=== PATIENT | male | born 1945 | race Caucasian/White ===

== ENCOUNTER 2023-11-07 19:49 | Inpatient (IN) | payer OTHER ==
[2023-11-07 20:19] VITALS: BMI 29.7
[2023-11-07] MEDS ORDERED: MECLIZINE HCL 25 MG TABLET (FP) PO ONE (22:17)
[2023-11-07] MEDS ORDERED: MECLIZINE HCL 25 MG TABLET (FP) ONE (22:27)
[2023-11-07 23:03] LABS: INR 1.07 (0.83-1.09); PROTHROMBIN TIME (PATIENT) 12.4 SEC (9.7-13.0)
[2023-11-07 23:05] LABS: ACTIVATED PTT 30.2 SECONDS (25.2-36.5)
[2023-11-07 23:13] LABS: POTASSIUM 4.3 mmol/L (3.5-5.1)
[2023-11-07 23:14] LABS: BASO % 0.4 % (0-2.0); EOS % 0.9 % (0-4.5); HEMATOCRIT 50.5 % (35.4-49); HEMOGLOBIN 17.1 GM/dL (11.7-16.9); LYMPH % 22.1 % (8-40); MCH 29.5 pg (25.7-33.7); MCHC 33.9 g/dl (32.0-35.9); MONO % 4.7 % (3.8-10.2); NEUT % 71.9 % (42.8-82.8); PLATELET COUNT 203 10^3/uL (134-434); RBC 5.81 M/mm3 (4.00-5.60); RDW 14.3 % (11.9-15.9); WHITE BLOOD COUNT 8.8 K/mm3 (4.0-10.0)
[2023-11-07 23:15] LABS: CALCIUM 9.8 mg/dL (8.5-10.1); PH,URINE 6.5 (5.0-8.0); URINE APPEARANCE CLEAR; URINE BILIRUBIN NEGATIVE (NEGATIVE); URINE COLOR YELLOW; URINE GLUCOSE (UA) NEGATIVE (NEGATIVE); URINE KETONE TRACE (NEGATIVE); URINE LEUK ESTERASE NEGATIVE (NEGATIVE); URINE NITRITE NEGATIVE (NEGATIVE); URINE PROTEIN NEGATIVE (NEGATIVE); URINE UROBILINOGEN 0.2 mg/dL (0.2-1.0)
[2023-11-07 23:16] LABS: BLOOD UREA NITROGEN 10.7 mg/dL (7-18)
[2023-11-07 23:18] LABS: CREATININE 0.8 mg/dL (0.55-1.3)
[2023-11-07 23:20] LABS: BILIRUBIN,TOTAL 0.5 mg/dL (0.2-1); TOT PROT 7.5 g/dl (6.4-8.2)
[2023-11-08 05:49] VITALS: RESP 20
[2023-11-08 07:25] LABS: BASO % 0.3 % (0-2.0); EOS % 1.9 % (0-4.5); HEMATOCRIT 47.3 % (35.4-49); HEMOGLOBIN 16.1 GM/dL (11.7-16.9); LYMPH % 29.3 % (8-40); MCHC 34.1 g/dl (32.0-35.9); MEAN PLT VOLUME 8.7 fl (7.5-11.1); MONO % 7.7 % (3.8-10.2); NEUT % 60.8 % (42.8-82.8); PLATELET COUNT 173 10^3/uL (134-434); RBC 5.38 M/mm3 (4.00-5.60); RDW 14.1 % (11.9-15.9); WHITE BLOOD COUNT 7.7 K/mm3 (4.0-10.0)
[2023-11-08 07:42] LABS: POTASSIUM 3.7 mmol/L (3.5-5.1)
[2023-11-08 07:44] LABS: CALCIUM 9.3 mg/dL (8.5-10.1)
[2023-11-08 07:45] LABS: ALBUMIN 3.5 g/dl (3.4-5.0); BLOOD UREA NITROGEN 10.2 mg/dL (7-18); MAGNESIUM 2.1 mg/dL (1.8-2.4)
[2023-11-08 07:47] LABS: PHOSPHOROUS 2.4 mg/dL (2.5-4.9)
[2023-11-08 07:48] LABS: CREATININE 0.9 mg/dL (0.55-1.3)
[2023-11-08 07:49] LABS: BILIRUBIN,TOTAL 0.4 mg/dL (0.2-1); TOT PROT 6.6 g/dl (6.4-8.2)
[2023-11-08 09:59] VITALS: BP 127/71; PULSE 49; TEMP 97.6
[2023-11-08] MEDS ORDERED: ENOXAPARIN NA (PORCINE) 40 MG/0.4 ML DISP.SYRIN SQ SCH (10:00)
[2023-11-08] MEDS ORDERED: ENOXAPARIN NA (PORCINE) 40 MG/0.4 ML DISP.SYRIN SQ ONE (10:47)
== END 2023-11-08 16:06 | disposition home or self-care (01) | DRG 312 ==
LOC: JER 19:49 → JERBED 11-08 03:23
PROVIDERS: ADMIT Internal Medicine; ATTEND Internal Medicine
DX: R55 Syncope and collapse (principal); R00.1 Bradycardia, unspecified; R91.1 Solitary pulmonary nodule; K76.0 Fatty (change of) liver, not elsewhere classified; R42 Dizziness and giddiness
CPT/HCPCS: 0241U-QW; 36415; 70450-TC; 71045-TC-FY; 71260-TC; 80053; 80061; 81003; 83036; 83735; 84100; 84443; 84484; 85025; 85610; 85730; 87086; 93005; 93010; 93306-TC; 99285-25; Q9967

== ENCOUNTER 2024-06-06 18:06 | Emergency (ER) | payer OTHER ==
[2024-06-06 18:13] VITALS: RESP 18; BMI 28.7
[2024-06-06 19:34] LABS: BASO % 0.2 % (0-2.0); EOS % 0.2 % (0-4.5); HEMATOCRIT 48.4 % (35.4-49); HEMOGLOBIN 16.4 GM/dL (11.7-16.9); LYMPH % 14.9 % (8-40); MCH 29.5 pg (25.7-33.7); MCHC 33.9 g/dl (32.0-35.9); MEAN PLT VOLUME 9.6 fl (7.5-11.1); MONO % 4.7 % (3.8-10.2); PLATELET COUNT 185 10^3/uL (134-434); RBC 5.56 M/mm3 (4.00-5.60); RDW 14.7 % (11.9-15.9); WHITE BLOOD COUNT 8.8 K/mm3 (4.0-10.0)
[2024-06-06 19:59] LABS: POTASSIUM 4.5 mmol/L (3.5-5.1)
[2024-06-06 20:02] LABS: CALCIUM 9.4 mg/dL (8.5-10.1)
[2024-06-06 20:03] LABS: MAGNESIUM 2.3 mg/dL (1.8-2.4)
[2024-06-06 20:05] LABS: CREATININE 0.9 mg/dL (0.55-1.3); PHOSPHOROUS 2.9 mg/dL (2.5-4.9)
[2024-06-06 20:07] LABS: BILIRUBIN,TOTAL 0.7 mg/dL (0.2-1); TOT PROT 7.3 g/dl (6.4-8.2)
[2024-06-06] MEDS: SODIUM CHLORIDE 0.9% 500 ML INFUS.BAG IV ONE (22:09)
[2024-06-06] MEDS ORDERED: MECLIZINE HCL 25 MG TABLET (FP) ONE (22:10)
[2024-06-06] MEDS: MECLIZINE HCL 25 MG TABLET (FP) PO ONE (22:13)
[2024-06-06 23:50] VITALS: BP 112/70; PULSE 46; TEMP 97.8
== END 2024-06-07 01:16 | disposition home or self-care (01) ==
LOC: JER 18:06
DX: R42 Dizziness and giddiness (principal); R00.1 Bradycardia, unspecified
CPT/HCPCS: 36415; 70450-TC; 80053; 83735; 84100; 84484; 85025; 93005; 93010; 99285-25